=== PATIENT | female | born 1990 | race African-American/Black ===

== ENCOUNTER 2016-05-07 08:35 | Emergency (ER) | payer OTHER ==
[~2016-05-07] VITALS: Ht 172.7 cm; Wt 112.1 kg
[~2016-05-07 08:35] MED LIST: CEPH500C PO; DPPI400; PARO1TAB27 PO; SULF800T23 PO; ZNTT/150 PO
[2016-05-07 08:44] VITALS: Ht 172.7 cm; Wt 112.1 kg
[2016-05-07] MEDS ORDERED: ONDANSETRON 4MG OD TAB PO STA (09:37)
[2016-05-07] MEDS ORDERED: HYDROCODONE/ACETAMOPHEN 5/325MG TAB PO ONE (09:45)
[2016-05-07] MEDS ORDERED: SUMA50TA15 PO (10:30)
[2016-05-07] MEDS ORDERED: PROP1TAB PO (10:30)
[2016-05-07] MEDS ORDERED: RIZA5TAB10 PO (10:30)
--- NOTE | 2016-05-07 10:31 | DIAGNOSTIC IMAGING REPORT ---
CT OF THE CERVICAL SPINE CLINICAL HISTORY: Neck pain status post trauma COMPARISON STUDY: No previous studies for comparison. CT DOSE: 1040.94 mGy.cm TECHNIQUE: CT scan of the cervical spine was performed from the skull base to the thoracic inlet. Images are reviewed in the axial, sagittal, and coronal planes. IV contrast was not administered for this examination. FINDINGS: The visualized portions of the lung apices reveal no evidence of pneumothorax. The prevertebral soft tissues are normal. No fractures or subluxations are visualized. There is slight straightening of normal cervical lordosis. IMPRESSION: No evidence of acute fracture or traumatic subluxation. Electronically signed by: Iain Matute M.D. 05/07/2016 10:29 AM Dictated Date/Time: 05/07/2016 10:27 AM
--- NOTE | 2016-05-07 10:37 | DIAGNOSTIC IMAGING REPORT ---
CT THORACIC SPINE WITHOUT CLINICAL HISTORY: Back pain following fall. TECHNIQUE: Axial images of the thoracic spine were obtained without IV contrast. Sagittal and coronal reconstructions were viewed. COMPARISON STUDY: None. FINDINGS: This exam is mildly compromised by artifact which affects visualization of the mid to lower thoracic spine. However, alignment is anatomic and no acute fracture is identified. Mild endplate osteophytosis is noted at several levels. The paravertebral soft tissues are unremarkable by CT. The central canal and neural foramen are suboptimally assessed by CT. There is a 2 mm left renal calculus. No fractures identified within visualized portions of the posterior ribs. 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 IMPRESSION: 1. No acute thoracic spine fracture or subluxation. 2. Minimal multilevel endplate osteophytosis. 3. 2 mm left renal calculus. Electronically signed by: Kofi López M.D. 05/07/2016 10:35 AM Dictated Date/Time: 05/07/2016 10:28 AM
[2016-05-07 11:00] VITALS: BP 147/75; PULSE 57; TEMP 36.6; O2SAT 97
[2016-05-07] MEDS ORDERED: HYDR-5688 PO (11:13)
--- NOTE | 2016-05-07 15:47 | EMERGENCY ROOM VISIT NOTE ---
History First contact with patient: 09:00 Chief Complaint: FALL Stated Complaint: FALL History of Present Illness The patient is a 26 year old female who presents to the Emergency Room with complaints of mid back pain after falling approximately 3 hours ago. The patient states that she was walking outside when she slipped on the ice, and fell backwards onto a hard surface. The patient cannot strike her head or lose consciousness. She primarily landed onto her back directly, and this is where most of her pain is. She does not have reports of extremity injury. No loss of consciousness. She has not taken anything [id number] for pain which she currently rates it 8/10. Review of Systems More than 10 systems were reviewed and otherwise negative with the exception of history of present illness. Past Medical/Surgical History No chronic medical disease Family History No pertinent family history Social History Smoking Status: Never Smoker Housing Status: lives with family Current/Historical Medications Scheduled Paroxetine (Paxil), 30 MG PO DAILY Propranolol (Inderal), Unknown Dose PO BID Sumatriptan Succinate (Imitrex), Unknown Dose PO PRN Scheduled PRN Hydrocodone/Acetaminophen 5MG/325MG (Bonham 5MG/325MG), 1 TABLET PO Q6 PRN for Pain Miscellaneous Medications Rizatriptan Benzoate (Maxalt), Unknown Dose PO Allergies Coded Allergies: No Known Allergies (Unverified Allergy, Mild, 09/27/06) Physical Exam Vital Signs Date Time Temp Pulse Resp B/P Pulse Ox O2 Delivery O2 Flow Rate FiO2 05/07/16 11:00 36.6 57 18 147/75 97 05/07/16 08:44 36.6 57 18 147/75 97 Room Air Pain Rating (0-10): 2.0 Physical Exam VITALS: Vitals are noted on the nurse's note and reviewed by myself. Vital signs stable. GENERAL: Well-developed, well-nourished, female, who is in no acute distress and resting comfortably. Patient is cooperative with the examination. HEAD: Normocephalic atraumatic. EARS: External ear normal. External auditory canals clear, tympanic membranes pearly solorzano without erythema or effusion bilaterally. EYES: Pupils equal round and reactive to light and accommodation. Conjunctivae without injection, sclerae without icterus. Extraocular movements intact. NOSE: Patent, turbinates without inflammation or discharge. MOUTH: Mucous membranes moist. Tonsils are not enlarged. Pharynx without erythema, blood, or exudate. Uvula midline. Airway patent. NECK: Supple without nuchal rigidity. No lymphadenopathy. No thyromegaly. Cervical spine is with tenderness throughout C5 into the mid thoracic spine. No step-off or significant paravertebral spasm. HEART: Regular rate and rhythm without murmurs gallops or rubs. LUNGS: Clear to auscultation bilaterally without wheezes, rales or rhonchi. No retractions or accessory muscle use. ABDOMEN: Positive normal bowel sounds x 4. Soft, nontender, without masses or organomegaly. No guarding or rebound tenderness. MUSCULOSKELETAL: No muscle atrophy, erythema, or edema noted. Full range of motion without joint tenderness in all extremities. NEURO: Patient was alert and oriented to person place and time. CN II through XII grossly intact. Medical Decision & Procedures ER Provider Diagnostic Interpretation: CT OF THE CERVICAL SPINE CLINICAL HISTORY: Neck pain status post trauma COMPARISON STUDY: No previous studies for comparison. CT DOSE: 1040.94 mGy.cm TECHNIQUE: CT scan of the cervical spine was performed from the skull base to the thoracic inlet. Images are reviewed in the axial, sagittal, and coronal planes. IV contrast was not administered for this examination. FINDINGS: The visualized portions of the lung apices reveal no evidence of pneumothorax. The prevertebral soft tissues are normal. No fractures or subluxations are visualized. There is slight straightening of normal cervical lordosis. IMPRESSION: No evidence of acute fracture or traumatic subluxation. CT THORACIC SPINE WITHOUT CLINICAL HISTORY: Back pain following fall. TECHNIQUE: Axial images of the thoracic spine were obtained without IV contrast. Sagittal and coronal reconstructions were viewed. COMPARISON STUDY: None. FINDINGS: This exam is mildly compromised by artifact which affects visualization of the mid to lower thoracic spine. However, alignment is anatomic and no acute fracture is identified. Mild endplate osteophytosis is noted at several levels. The paravertebral soft tissues are unremarkable by CT. The central canal and neural foramen are suboptimally assessed by CT. There is a 2 mm left renal calculus. No fractures identified within visualized portions of the posterior ribs. 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 IMPRESSION: 1. No acute thoracic spine fracture or subluxation. 2. Minimal multilevel endplate osteophytosis. 3. 2 mm left renal calculus. Medications Administered Medications (Trade) Dose Ordered Sig/Adriano Route Start Time Stop Time Status Last Admin Dose Admin Acetaminophen/ Hydrocodone Bitart (Bonham 5/325 Tab) 1 tab NOW ONCE PO 05/07/16 09:45 05/07/16 09:46 DC 05/07/16 09:48 1 TAB Ondansetron HCl (Zofran Odt) 4 mg NOW STAT PO 05/07/16 09:37 05/07/16 09:40 DC 05/07/16 09:48 4 MG ED Course Physical exam and history were performed. Nursing notes and EMR were reviewed. Patient appears to have fallen on the ice this morning. On examination she does not have injury to her head. Her tenderness is primarily the lower cervical spine into the mid thoracic spine. She does not have chest pain or other notable injury. The patient was given oral Vicodin and Zofran here in the department for comfort and was sent to CT scan for imaging. The patient's CT scans do not show evidence of acute fracture or other significant findings. I suspect her discomfort is musculoskeletal from the fall. Overall the patient does appear stable for discharge home. I will give her a short course of pain medication and have her follow with her primary care for further management. She was otherwise invited back to the ER with any new, worsening, or concerning symptoms. The chart was completed utilizing [employer] Speech Voice Recognition Software. Grammatical errors, random word insertions, pronoun errors, and incomplete sentences are an occasional consequence of this system due to software limitations, ambient noise, and hardware issues. Any formal questions or concerns about the content, text, or information contained within the body of this dictation should be directly addressed to the provider for clarification. . Medical Decision Differential diagnosis includes, but is not limited to: Sprain, strain, fracture , dislocation, subluxation, contusion, and others [place] Drug Monitoring Program Search Results: patient reviewed within database, no issues identified Impression Primary Impression: Fall Additional Impression: Contusion of multiple sites Departure Information Dispostion Home / Self-Care Condition GOOD Prescriptions Hydrocodone/Acetaminophen 5MG/325MG (Bonham 5MG/325MG) Tab 1 TABLET PO Q6 Y for Pain, #12 TAB For Initial Treatment Prov: David Del Cid PA-C 05/07/16 Forms HOME CARE DOCUMENTATION FORM, Work Instructions, Additional Instructions: Patient was seen and evaluated in the emergency department today fo medical care. Return to work on 05/10/2016. Please excuse. IMPORTANT VISIT INFORMATION Patient Instructions A Signature Page, [facility] Additional Instructions You were seen and evaluated today on an emergency basis only. This is not a substitute for, or an effort to provide, complete comprehensive medical care. It is not possible to recognize and treat all injuries or illnesses in a single emergency department visit. For this reason it is recommended that you followup with your primary care physician next week for ongoing care and evaluation. For baseline pain relief you may alternate ibuprofen and acetaminophen every 4 hours for pain control. Take 600 mg ibuprofen (Advil) and then 4 hours later take 1000 mg acetaminophen (Tylenol). Do not take more than 3000 mg acetaminophen in a single day. Bonham (hydrocodone/acetaminophen) 5/325 mg every 6 hours as needed for worsening breakthrough pain. Do not drink or drive on [place]. This medication will likely make you tired. Do not take Bonham and Tylenol at the same time as both contain acetaminophen. Bonham may cause constipation. You may wish to take an [id number] stool softener like Colace if this occurs. You are welcome to return to the emergency department anytime with new, worsening, or concerning symptoms. Work Instructions Additional Work Instructions: Patient was seen and evaluated in the emergency department today for medical care. Return to work on 05/10/2016. Please excuse. Problem Qualifiers
== END 2016-05-07 11:24 | disposition home or self-care (01) ==
LOC: C.EDB 08:37 → C.EDC 11:24
DX: T14.8 Other injury of unspecified body region (principal); W00.0XXA Fall on same level due to ice and snow, initial encounter; Y93.01 Activity, walking, marching and hiking; N20.0 Calculus of kidney